=== PATIENT | male | born 1995 | race Hispanic/Latino ===

== ENCOUNTER 2022-01-29 23:09 | Emergency (ER) | payer OTHER ==
[~2022-01-29] VITALS: Ht 182.9 cm; Wt 163.3 kg
[2022-01-30] MEDS ORDERED: ORPHENADRINE CITRATE 30 MG/ML ML IM ONE
[2022-01-30] MEDS ORDERED: LIDOCAINE 5% TOPICAL PATCH TP ONE
[2022-01-30] MEDS ORDERED: KETOROLAC 60 MG VIAL (30MG/ML) IM ONE
[2022-01-30] MEDS ORDERED: MELO7.5T12 PO (00:15)
[2022-01-30] MEDS ORDERED: LIDOP TP (00:15)
[2022-01-30] MEDS ORDERED: CYCL-309 PO (00:15)
[2022-01-30 00:50] VITALS: BP 122/67
== END 2022-01-30 00:52 | disposition home or self-care (01) ==
LOC: EDH 23:09
DX: M62.830 Muscle spasm of back (principal); I10 Essential (primary) hypertension; Z79.1 Long term (current) use of non-steroidal anti-inflammatories (NSAID)
CPT/HCPCS: J1885

== ENCOUNTER 2023-08-15 19:48 | Emergency (ER) | payer OTHER ==
[~2023-08-15] VITALS: Ht 182.9 cm; Wt 167.8 kg
[~2023-08-15 19:48] MED LIST: CYCL-309 PO; LIDOP TP; MELO7.5T12 PO
[2023-08-15 21:35] VITALS: BP 181/94; PULSE 86; RESP 20
[2023-08-16] MEDS ORDERED: KETOROLAC 15MG/ML VIAL (15MG/ML) IV ONE (01:00)
[2023-08-16] MEDS ORDERED: LACTATED RINGERS 1000ML 1,000 ML IV ONE (01:00)
[2023-08-16] MEDS ORDERED: DIAZEPAM 5 MG/ML 2 ML SYG IVP ONE (01:00)
[2023-08-16] MEDS ORDERED: FAMOTIDINE 20MG VIAL IV ONE (01:00)
== END 2023-08-16 03:20 | disposition home or self-care (01) ==
LOC: EDH 19:48
DX: M54.50 Low back pain, unspecified (principal)
CPT/HCPCS: 99284; 96374; 96375; J7120; J3490; J3360; J1885